=== PATIENT | male | born 2000 | race Caucasian/White ===

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

== ENCOUNTER 2021-03-13 08:22 | Emergency (ER) | payer BC, OTHER ==
[2021-03-13 08:46] VITALS: BP 126/71
--- NOTE | 2021-03-13 09:02 | ED Physician Documentation ---
History of Present Illness - Stated complaint Stated Complaint: BAT EXPOSURE - Chief complaint Chief Complaint: General - History obtained from History obtained from: Patient, Family - History of Present Illness Timing: Today (He and sister noted a bat flying in livingroom area of their house last evening. They closed their bedroom doors and the outside door and were not exposed directly. Bat still present and flying around today. They came here for concern of exposure to bat.), Last night - Treatment prior to arrival Treatment prior to arrival: none Review of Systems Skin: denies: Abrasion (s), Laceration (s) PD PAST MEDICAL HISTORY - Past Medical History Past Medical History: No Cardiovascular: None Respiratory: None Neuro: None Endocrine/Autoimmune: None GI: None HEENT: None Derm: None - Past Surgical History Past Surgical History: No - Present Medications Home Medications: Ambulatory Orders Medication Instructions Recorded Confirmed No Known Home Medications 03/19/14 07/08/17 - Allergies Allergies/Adverse Reactions: Allergies Allergy/AdvReac Type Severity Reaction Status Date / Time No Known Drug Allergies Allergy Verified 03/13/21 08:46 - Social History Does the pt smoke?: No Smoking Status: Never smoker Does the pt drink ETOH?: No Does the pt have substance abuse?: No - Immunizations Immunizations are current?: Yes PD ED PE NORMAL - Vitals Vital signs reviewed: Yes - General General: Alert and oriented X 3, No acute distress, Well developed/nourished - HEENT HEENT: Other (The patient states the bat did not come near him at all. It was not in their bed spaces. He is not aware of a direct contact but does not know how long the bat had been there.) - Derm Derm: Normal color, Warm and dry - Neuro Neuro: Alert and oriented X 3, Normal speech Results - Vitals Vitals: Vital Signs - 24 hr 03/13/21 08:43 Temperature 36.4 C L Heart Rate 77 Respiratory 15 Rate Blood Pressure 126/71 O2 Saturation 99 Oxygen O2 Source Room air PD MEDICAL DECISION MAKING - ED course Complexity details: considered differential, d/w patient ED course: This seems like a low risk exposure without any close contact and it was not in their sleeping space or such. However they were concerned about the bat in their house and not knowing how long it had been there. The bat is actually still there and so they were going to contact animal control and see if it can be captured and killed and tested. If so that could obviate the need for further vaccinations. I discussed with them the low exposure based on their encounter versus dormant symptoms of rabies that you cannot really tell if you have been infected until too late. They opted for vaccination and treatment. Departure - Departure Disposition: Home, Self Care Clinical Impression: Exposure to bat without known bite Condition: Stable Comments: See if animal control can catch the bat tested for rabies. If so that would preempt the need for further immunization series. Otherwise the rabies vaccine series would be 3 more vaccines given at an interval of 3 days from now, 7 days from now, 14 days from now (so March 16 and April 03. There can be some variability on the last 2 of those around those dates +/- a day before or after). If you need the remaining vaccines in the series, it can be done through your primary care or at time through our outpatient clinic [place] It would need to be ordered by your primary care provider. [place] the [facility] [phone] (hospital number [phone]) if trying to arrange it that way. Otherwise can be gotten back in the ER here. Discharge Date/Time: 03/13/21 11:04
[2021-03-13] MEDS ORDERED: RABIES VACCINE 2.5 UNIT SYRINGE IM ONE (09:22)
[2021-03-13] MEDS ORDERED: RABIES IMMUNE GLOBULIN 300 UNITS/2 ML IM STA (09:22)
== END 2021-03-13 11:04 | disposition home or self-care (01) ==
LOC: ED 08:22
DX: Z20.3 Contact with and (suspected) exposure to rabies (principal); Z29.14 Encounter for prophylactic rabies immune globulin
CPT/HCPCS: 90471; 96372; 99281; 99282

== ENCOUNTER 2022-10-01 08:00 | Outpatient (CLI) | payer BC ==
[2022-10-01 15:17] LABS: BASOPHILS # (AUTO) 0.1 10^3/uL (0.0-0.1); BASOPHILS % (AUTO) 1.2 %; EOSINOPHILS # (AUTO) 0.1 10^3/uL (0.0-0.7); EOSINOPHILS % (AUTO) 2.4 %; HCT - HEMATOCRIT 45.6 % (42.0-52.0); HGB - HEMOGLOBIN 15.2 g/dL (14.0-18.0); LYMPHOCYTES # (AUTO) 1.1 10^3/uL (1.5-3.5); LYMPHOCYTES % (AUTO) 25.2 %; MEAN CORPUSCULAR HEMOGLOBIN 31.1 pg (27.0-31.0); MEAN CORPUSCULAR HGB CONC 33.3 g/dL (32.0-36.0); MEAN CORPUSCULAR VOLUME 93.4 fL (80.0-94.0); MEAN PLATELET VOLUME 11.4 fL (7.4-11.4); MONOCYTES # (AUTO) 0.4 10^3/uL (0.0-1.0); MONOCYTES % (AUTO) 10.2 %; NEUTROPHILS # (AUTO) 2.6 10^3/uL (1.5-6.6); NEUTROPHILS % (AUTO) 60.8 %; PLT - PLATELET COUNT 291 10^3/uL (130-450); RED BLOOD COUNT 4.88 10^6/uL (4.70-6.10); RED CELL DISTRIBUTION WIDTH 11.9 % (12.0-15.0); WHITE BLOOD COUNT 4.2 x10^3/uL (4.8-10.8)
[2022-10-01 15:23] LABS: ALBUMIN 5.1 g/dL (3.2-5.5); ALBUMIN/GLOBULIN RATIO 1.5 (1.0-2.2); BILIRUBIN,TOTAL 1.6 mg/dL (0.2-1.0); CALCIUM 9.9 mg/dL (8.5-10.3); CREATININE 1.1 mg/dL (0.6-1.2); TOTAL PROTEIN 8.4 g/dL (6.7-8.2)
[2022-10-03 12:09] LABS: GIARDIA LAMBLIA AG EIA Negative (Negative)
== END 2022-10-01 23:59 | disposition home or self-care (01) ==
LOC: LAB.S 08:00
PROVIDERS: ATTEND Physician Assistant Medical
DX: R19.7 Diarrhea, unspecified (principal); R11.2 Nausea with vomiting, unspecified
CPT/HCPCS: 36415; 80053; 85025; 87045; 87046; 87177; 87329; 87427